=== PATIENT | female | born 1975 | race African-American/Black ===

== ENCOUNTER 2019-06-30 03:05 | Emergency (ER) | payer OTHER ==
[~2019-06-30] VITALS: Ht 165.1 cm; Wt 59.0 kg
--- NOTE | 2019-06-30 03:10 | NUR ---
ED Nurse Note: Pt brought in by ambulance from [facility]. Pt reports 10/10 abdominal pain L sided radiating to back x1 hr, reports vomiting earlier in the day, deneis N/D currently. Pt is A&Ox4. reports taking pain medication prescribed by MD earlier without relief. ERMD at bedside. VSS
[2019-06-30 03:14] VITALS: BP 136/76
[2019-06-30] MEDS ORDERED: Morphine Sulfate 4mg/ml Inj (IV USE ONLY) IVP ONE ×2 (03:15→06:30)
[2019-06-30] MEDS ORDERED: Omnipaque-300 100ml vial INJ PRN (03:15)
--- NOTE | 2019-06-30 03:40 | Emergency Room Report ---
History of Present Illness General Chief Complaint: Abdominal Pain Source: Patient, EMS Present Illness HPI Patient is a 43-year-old female past medical history of VA status post stent placement x2, lymphoma on radiation therapy who presents to the ER complaining of abdominal pain. Patient states that her abdominal pain started an hour and half ago. Patient presented by EMS. She denies any fever, chills, vomiting, chest pain, shortness of breath, dysuria or hematuria. She denies constipation or diarrhea. She denies any sick contacts. COVID-19 risk:Contact w/high r: No COVID-19 risk:Travel to affect: No Has patient experienced murillo: No Allergies: Coded Allergies: PENICILLINS (Verified Allergy, Unknown, 06/30/19) Patient History Past Medical History: VA, other - lymphoma Past Surgical History: other - L "chest surgery to look at mass" Social History: Denies: smoking, alcohol use, drug use Nursing Documentation-[facility] Hx Cancer: Yes - lymphomia Review of Systems All Other Systems: negative except mentioned in HPI Physical Exam Vital Signs Date Time Temp Pulse Resp B/P (MAP) Pulse Ox O2 Delivery O2 Flow Rate FiO2 06/30/19 03:06 97.9 82 16 136/76 (96) 98 Room Air Sp02 EP Interpretation: reviewed, normal General Appearance: alert, GCS 15, non-toxic, mild distress Head: normocephalic, atraumatic Eyes: bilateral eye normal inspection, bilateral eye PERRL ENT: hearing grossly normal, normal pharynx, no angioedema, normal voice Neck: full range of motion, supple/symm/no masses Respiratory: chest non-tender, lungs clear, normal breath sounds, speaking full sentences, other - Left lateral chest wall multiple healed surgical incision sites Cardiovascular #1: regular rate, rhythm, no edema Cardiovascular #2: 2+ carotid (R), 2+ carotid (L), 2+ radial (R), 2+ radial (L) Gastrointestinal: normal bowel sounds, soft, non-distended, no guarding, no rebound, other - Left periumbilical tenderness to palpation with guarding Rectal: deferred Genitourinary: normal inspection, CVA tenderness (L) Musculoskeletal: back normal, normal range of motion, calf tenderness, gait/ station normal, non-tender Neurologic: alert, motor strength/tone normal, oriented x3, sensory intact, responsive, speech normal Psychiatric: judgement/insight normal, memory normal, mood/affect normal, no suicidal/homicidal ideation Skin: no rash Lymphatic: no adenopathy Medical Decision Making Diagnostic Impression: Primary Impression: Abdominal pain ER Course Patient's vital signs are stable. She is afebrile. She has no elevated white blood cell count. Patient given multiple doses of IV narcotics. Patient seems to be very narcotic tolerant. Patient has no acute findings on her labs except for UTI. Patient given 1 dose of IV Rocephin here and discharged with Keflex.. Patient CT abdomen pelvis demonstrates no acute intra-abdominal pathology. Patient has been given a copy of her CT results as well as a prescription for pain medication. After discussing risks and benefits of further diagnostics, treatment plans, as well as indications for and risks of admission, the patient is agreeable to being discharged home. I have explained that their evaluation and treatment in the emergency department today is an important step towards them achieving better health but that their evaluation today is not intended to replace further evaluation and treatment by a physician in their local clinic. I have explained that while the current findings suggest no immediate life threatening emergency they will require further evaluation and treatment by a physician of their choice in their area. They understand that it will be necessary for them to review the final reports of their ED visit with their clinic physician. We have reviewed indications for return to the Emergency Department. I have explained that additional time may need to pass and/or additional testing as an outpatient may be necessary before a definitive diagnosis can be made. They tell me they are willing to follow up as instructed within the timeframe I recommend. They appear to understand what we discussed. Additionally they understand that if they are unable to be seen by an outpatient physician they are welcome, and in fact should, return to the Emergency Department for a repeat evaluation. The patient is stable at time of discharge. EKG Diagnostic Results EKG Time: 03:56 EP Interpretation: MD Dex Rate: normal Rhythm: NSR ST Segments: no acute changes ASA given to the pt in ED: No Rhythm Strip Diag. Results Rhythm Strip Time: 04:05 EP Interpretation: yes Rate: 90 Rhythm: NSR, no PVC's, no ectopy Last Vital Signs Date Time Temp Pulse Resp B/P (MAP) Pulse Ox O2 Delivery O2 Flow Rate FiO2 06/30/19 03:14 97.9 82 16 136/76 98 Room Air Disposition: HOME, SELF-CARE Condition: Stable Scripts Cephalexin* (KEFLEX*) 500 Mg Tablet 500 MG ORAL EVERY 8 HOURS for 5 Days, CAP Prov: Melony Kowalski M.D. 06/30/19 Oxycodone Hcl/Acetaminophen 10-325 Mg Tablet (PERCOCET 10-325 MG TABLET*) 1 Each Tablet 1 TAB ORAL Q6H PRN, #12 TAB 0 Refills Prov: Melony Kowalski M.D. 06/30/19 Additional Instructions: The patient was provided with discharge instructions, notified to follow-up with a primary care doctor and or specialist in the next 24-48 hours, and to return to the ED if they have worsening of their symptoms. Please note that this report is being documented using [employer] technology. This can lead to erroneous entry secondary to incorrect interpretation by the dictating instrument. Melony Kowalski M.D. Jun 30, 2019 03:40
[2019-06-30 04:00] LABS: BILIRUBIN, URINE NEGATIVE (NEGATIVE); GLUCOSE, URINE (UA) NEGATIVE (NEGATIVE); KETONES,URINE NEGATIVE (NEGATIVE); LEUKOCYTE ESTERASE ,URINE 3+ (NEGATIVE); NITRITE,URINE NEGATIVE (NEGATIVE); PH,URINE 6 (4.5-8.0); PROTEIN,URINE 2+ (NEGATIVE); UROBILINOGEN,URINE 1 MG/DL (0.0-1.0)
[2019-06-30] MEDS ORDERED: HYDROmorphone 1mg/ml Carpuject IVP ONE (04:00)
[2019-06-30 04:02] LABS: COLOR,URINE YELLOW
[2019-06-30 04:07] LABS: ANION GAP 11 mmol/L (5-15); BLOOD UREA NITROGEN 13 mg/dL (7-18); CARBON DIOXIDE 22 MMOL/L (21-32); CHLORIDE 104 MMOL/L (98-107); CREATININE 0.8 MG/DL (0.55-1.30); SODIUM 137 MMOL/L (136-145)
[2019-06-30 04:11] LABS: APPEARANCE,URINE CLOUDY
[2019-06-30 04:12] LABS: ALANINE AMINOTRANSFERASE 49 U/L (12-78); ALBUMIN 3.8 G/DL (3.4-5.0); ALKALINE PHOSPHATASE 85 U/L (46-116); ASPARTATE AMINO TRANSFERASE 80 U/L (15-37); BILIRUBIN,TOTAL 0.6 MG/DL (0.2-1.0)
[2019-06-30 04:15] LABS: EOSINOPHILS % (AUTO) 5.3 % (0.0-3.0); HEMATOCRIT 30.7 % (37.0-47.0); HEMOGLOBIN 9.8 G/DL (12.0-16.0); LYMPHOCYTES % (AUTO) 20.5 % (20.0-45.0); MEAN CORPUSCULAR VOLUME 76 FL (80-99); MONOCYTES % (AUTO) 7.6 % (1.0-10.0); NEUTROPHILS % (AUTO) 65.6 % (45.0-75.0); PLATELET COUNT 120 K/UL (150-450); RED BLOOD COUNT 4.05 M/UL (4.20-5.40); WHITE BLOOD COUNT 4.2 K/UL (4.8-10.8)
[2019-06-30] MEDS ORDERED: fentaNYL 100 mcg/2 mL IV ONE ×3 (04:15→06:00)
[2019-06-30] MEDS ORDERED: cefTRIAXone 1 GM in NS 55 ML IVPB ONE (04:30)
--- NOTE | 2019-06-30 05:00 | NUR ---
ED Nurse Note: Pt to CT
--- NOTE | 2019-06-30 05:45 | NUR ---
ED Nurse Note: Pt back from CT
--- NOTE | 2019-06-30 06:10 | Diagnostic Imaging Report ---
INDICATION: Abdominal pain TECHNIQUE: Continuous helical transaxial imaging of the abdomen and pelvis was obtained from the lung bases to the pubic symphysis during intravenous contrast administration. Coronal 2-D reformats were also obtained. Study obtained in a Siemens sensation [address] Automatic Exposure Control was utilized. Total Dose length Product (DLP): 253.[address] Dose Index Volume (CTDIvol): 4.9 mGy COMPARISON: None FINDINGS: Study is degraded by motion. Lungs: The visualized lung bases are clear. Liver: Tiny hypodensity in the posterior dome of the liver too small to characterize. Gallbladder/biliary system: Gallbladder is absent. No biliary ductal dilatation is appreciated.. Spleen: Unremarkable Pancreas: Unremarkable Kidneys/Bladder: No hydronephrosis identified. Both kidneys enhance symmetrically. The urinary bladder is unremarkable.. Adrenal glands: Unremarkable Aorta/IVC: Unremarkable Bowel: Appendectomy noted. There is no evidence of bowel obstruction. Peritoneum: There is no free fluid. The uterus is enlarged. This could be due to underlying fibroids. Ultrasound evaluation may be helpful.. Bones: Unremarkable IMPRESSION: No acute findings. Enlarged uterus. Consider ultrasound for further evaluation. Status post appendectomy. The CT scanner at [facility] is accredited by the [employer] and the scans are performed using dose optimization techniques as appropriate to a performed exam including Automatic Exposure control.
[2019-06-30] MEDS ORDERED: PERCOCET 10-321 EACH ORAL (06:16)
[2019-06-30] MEDS ORDERED: CEPHALEXIN500 M1 ORAL (06:22)
[2019-06-30 06:30] VITALS: BP 136/76
--- NOTE | 2019-06-30 06:30 | NUR ---
ER DISCHARGE NOTE: Patient is cleared to be discharged per ERMD, pt is aox4, on room air, with stable vital signs. pt was given dc and prescription instructions, pt was able to verbalize understanding, pt id band and iv site removed without complications. pt is able to ambulate with steady gait. pt took all belongings.
== END 2019-06-30 06:30 | disposition home or self-care (01) ==
LOC: EDBD 03:05 → EMR 03:42
DX: R10.9 Unspecified abdominal pain (principal); I25.2 Old myocardial infarction; Z95.5 Presence of coronary angioplasty implant and graft; Z90.89 Acquired absence of other organs; Z85.72 Personal history of non-Hodgkin lymphomas
CPT/HCPCS: 36415; 74177; 80053; 80307; 81003; 83690; 83735; 84484; 84702; 85025; 87086; 87181; 93005; 96361; 96365; 96375; 96376; J0696; J1170; J2270; J2405; J3010; J7030; Q9967; Z7502; 99284

== ENCOUNTER 2019-09-22 12:51 | Emergency (ER) | payer OTHER ==
[~2019-09-22] VITALS: Ht 172.7 cm; Wt 61.2 kg
[2019-09-22 12:51] VITALS: BP 153/80
[~2019-09-22 12:51] MED LIST: CEPHALEXIN500 M1 ORAL; PERCOCET 10-321 EACH ORAL
--- NOTE | 2019-09-22 12:51 | NUR ---
ED Nurse Note: Patient MARILEE RA26 from home c/o nausea, vomiting, diarrhea x2 days. Pt also c/o left lower abdominal pain. No episode of vomiting at this moment. AAOx4, verbally responsive. No SOB. Afebrile. 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
--- NOTE | 2019-09-22 13:00 | NUR ---
ED Nurse Note: IV line established. Blood specimen collected and sent to lab.
[2019-09-22 13:39] LABS: BASOPHILS % (AUTO) 1.3 % (0.0-2.0); HEMATOCRIT 38.9 % (37.0-47.0); HEMOGLOBIN 11.5 G/DL (12.0-16.0); LYMPHOCYTES % (AUTO) 11.1 % (20.0-45.0); MEAN CORPUSCULAR VOLUME 87 FL (80-99); MONOCYTES % (AUTO) 6.7 % (1.0-10.0); PLATELET COUNT 198 K/UL (150-450); RED BLOOD COUNT 4.49 M/UL (4.20-5.40); RED CELL DISTRIBUTION WIDTH 19.1 % (11.6-14.8); WHITE BLOOD COUNT 8.3 K/UL (4.8-10.8)
[2019-09-22] MEDS ORDERED: Ketorolac 30mg Inj IV ONE (13:45)
[2019-09-22] MEDS ORDERED: HYDROcodone/Acetamin 5/325 tab ORAL ONE (13:45)
[2019-09-22 13:52] LABS: ANION GAP 15 mmol/L (5-15); BLOOD UREA NITROGEN 16 mg/dL (7-18); CALCIUM 8.6 MG/DL (8.5-10.1); CARBON DIOXIDE 21 MMOL/L (21-32); CHLORIDE 103 MMOL/L (98-107); CREATININE 0.7 MG/DL (0.55-1.30); POTASSIUM 3.7 MMOL/L (3.5-5.1); SODIUM 139 MMOL/L (136-145)
[2019-09-22 13:57] LABS: ALANINE AMINOTRANSFERASE 38 U/L (12-78); ALBUMIN 3.9 G/DL (3.4-5.0); ALBUMIN/GLOBULIN RATIO 1.1 (1.0-2.7); ALKALINE PHOSPHATASE 86 U/L (46-116); ASPARTATE AMINO TRANSFERASE 39 U/L (15-37); BILIRUBIN,TOTAL 0.8 MG/DL (0.2-1.0)
--- NOTE | 2019-09-22 14:34 | Emergency Room Report ---
History of Present Illness General Chief Complaint: Nausea, Vomiting, and Diarrhea Source: Patient Present Illness HPI The patient states that she believes she had a panic attack. The patient has a lot going on medically. She states that she has been recently diagnosed with lymphoma. She recently broke her wrist and has a cast. She states she has endometriosis and has chronic pain. She states she did start her period and noted that today she felt very anxious to the point where she thought she was going to . She states that she feels very emotional. She has been followed closely by her orthopedic physician and her cast is coming off in the next couple days. She is requesting antianxiety medication and pain medication. Chills. She denies abnormal vaginal discharge. She denies chest pain or shortness of breath. She has no other complaints. 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 Patient History Past Medical History: see triage record, [place], other - Endometriosis, Lymphoma, Anxiety, endometriosis Social History: Reports: drug use - THC; Denies: smoking, alcohol use Last Menstrual Period: CURRENTLY ON HER PERIOD Reviewed Nursing Documentation: PMH: Agreed; PSxH: Agreed Nursing Documentation-PMH Hx Cancer: Yes - lymphomia Review of Systems All Other Systems: negative except mentioned in HPI Physical Exam Vital Signs Date Time Temp Pulse Resp B/P (MAP) Pulse Ox O2 Delivery O2 Flow Rate FiO2 09/22/19 12:44 98.1 130 19 153/80 (104) 98 Room Air Sp02 EP Interpretation: reviewed, normal General Appearance: no apparent distress, alert, GCS 15, non-toxic Head: normocephalic, atraumatic Eyes: bilateral eye normal inspection, bilateral eye PERRL ENT: hearing grossly normal, normal pharynx, no angioedema, normal voice Neck: full range of motion, supple/symm/no masses Respiratory: no respiratory distress, no retraction, no accessory muscle use, speaking full sentences Cardiovascular #1: regular rate, rhythm, no edema Gastrointestinal: normal bowel sounds, soft, non-distended, no guarding, no rebound, tenderness - TTP over the pelvis Rectal: deferred Musculoskeletal: normal inspection, normal range of motion, gait/station normal , non-tender Neurologic: alert, motor strength/tone normal, oriented x3, sensory intact, responsive, speech normal Psychiatric: judgement/insight normal, memory normal, mood/affect normal, no suicidal/homicidal ideation Skin: no rash, normal color Medical Decision Making Diagnostic Impression: Primary Impression: Abdominal pain Additional Impression: Panic attack ER Course This patient has known chronic pain and is started her menses and has a history of endometriosis. She has symptoms that are consistent with a panic attack. Patient has a lot of recent stressors. I do not feel that giving this patient benzodiazepines would be helpful and would only provide her temporary relief. Further discussion with the patient and she does have Lexapro and her primary care physician is following her for her anxiety. Therefore I will not be adding any psychiatric medications to the patient's regimen. I did give the patient 1 tablet of oral [place] and IV Toradol for her menstrual cramping. Patient has significant relief. The patient is instructed to follow-up closely with her primary care physician. She is given close return precautions and follow-up instructions. Laboratory Tests Test 09/22/19 13:22 White Blood Count 8.3 K/UL (4.8-10.8) Red Blood Count 4.49 M/UL (4.20-5.40) Hemoglobin 11.5 G/DL (12.0-16.0) L Hematocrit 38.9 % (37.0-47.0) Mean Corpuscular Volume 87 FL (80-99) Mean Corpuscular Hemoglobin 25.7 PG (27.0-31.0) L Mean Corpuscular Hemoglobin Concent 29.6 G/DL (32.0-36.0) L Red Cell Distribution Width 19.1 % (11.6-14.8) H Platelet Count 198 K/UL (150-450) Mean Platelet Volume 9.1 FL (6.5-10.1) Neutrophils (%) (Auto) 79.0 % (45.0-75.0) H Lymphocytes (%) (Auto) 11.1 % (20.0-45.0) L Monocytes (%) (Auto) 6.7 % (1.0-10.0) Eosinophils (%) (Auto) 2.0 % (0.0-3.0) Basophils (%) (Auto) 1.3 % (0.0-2.0) Sodium Level 139 MMOL/L (136-145) Potassium Level 3.7 MMOL/L (3.5-5.1) Chloride Level 103 MMOL/L (98-107) Carbon Dioxide Level 21 MMOL/L (21-32) Anion Gap 15 mmol/L (5-15) Blood Urea Nitrogen 16 mg/dL (7-18) Creatinine 0.7 MG/DL (0.55-1.30) Estimated Glomerular Filtration Rate > 60 mL/min (>60) Glucose Level 87 MG/DL (74-106) Calcium Level 8.6 MG/DL (8.5-10.1) Total Bilirubin 0.8 MG/DL (0.2-1.0) Aspartate Amino Transferase (AST) 39 U/L (15-37) H Alanine Aminotransferase (ALT) 38 U/L (12-78) Alkaline Phosphatase 86 U/L (46-116) Total Protein 7.4 G/DL (6.4-8.2) Albumin 3.9 G/DL (3.4-5.0) Globulin 3.5 g/dL Albumin/Globulin Ratio 1.1 (1.0-2.7) Last Vital Signs Date Time Temp Pulse Resp B/P (MAP) Pulse Ox O2 Delivery O2 Flow Rate FiO2 09/22/19 12:51 98.1 130 19 153/80 98 Room Air Status: improved Disposition: HOME, SELF-CARE Condition: Improved Referrals: NON PHYSICIAN (PCP) Janelle Rodarte DO Sep 22, 2019 14:34
--- NOTE | 2019-09-22 14:40 | NUR ---
ED Nurse Note: Urine specimen collected and sent to lab.
[2019-09-22 14:55] LABS: APPEARANCE,URINE SLIGHTLY CLOUDY; BILIRUBIN, URINE NEGATIVE (NEGATIVE); GLUCOSE, URINE (UA) NEGATIVE (NEGATIVE); KETONES,URINE 3+ (NEGATIVE); LEUKOCYTE ESTERASE ,URINE 2+ (NEGATIVE); PH,URINE 6.5 (4.5-8.0); PROTEIN,URINE 3+ (NEGATIVE); UROBILINOGEN,URINE NORMAL MG/DL (0.0-1.0)
[2019-09-22 14:58] LABS: NITRITE,URINE NEGATIVE (NEGATIVE)
[2019-09-22 15:00] LABS: COLOR,URINE RED
[2019-09-22 15:49] VITALS: BP 139/75
--- NOTE | 2019-09-22 15:49 | NUR ---
ED Nurse Note: Pt cleared by ERMD for discharge. DC instructions was given and explained to pt and verbalized understanding of teachings. All medical deviecs such as ID band and IV line removed. Pt is AAO x4, ambulatory and left with all personal belongings. Taking taxi cab going home.
== END 2019-09-22 15:49 | disposition home or self-care (01) ==
LOC: EDBD 12:51 → EMR 13:15
DX: R10.9 Unspecified abdominal pain (principal); F41.0 Panic disorder [episodic paroxysmal anxiety]; Z88.0 Allergy status to penicillin; Z85.72 Personal history of non-Hodgkin lymphomas; F12.90 Cannabis use, unspecified, uncomplicated; I25.2 Old myocardial infarction
CPT/HCPCS: 36415; 80053; 80307; 81003; 81025; 84484; 85025; 93005; 96361; 96374; 96375; 99284; J1885; J2405; J7030